=== PATIENT | female | born 1955 | race Caucasian/White ===

== ENCOUNTER 2018-06-12 16:39 | Emergency (ER) | payer OTHER ==
[~2018-06-12] VITALS: Ht 157.5 cm; Wt 73.9 kg
[2018-06-12] MEDS ORDERED: NOR10 PO (18:15)
[2018-06-12] MEDS ORDERED: METFORMIN500 M1 PO (18:16)
[2018-06-12] MEDS ORDERED: LOVASTATIN20 MG PO (18:17)
[2018-06-12] MEDS ORDERED: LOSARTAN POTASS1 TA8 PO (18:17)
[2018-06-12 18:32] LABS: BASOPHIL % 0.5 % (0-2); PLATELET COUNT 275 x10^3mcL (130-400); RED CELL DISTRIBUTION WIDTH 13.9 % (11.5-14.5)
[2018-06-12 18:39] LABS: CALCIUM 9.3 mg/dL (8.5-10.1); CARBON DIOXIDE 30.8 mmol/L (21-32); CHLORIDE SERUM 102 mmol/L (98-107); CREATININE SERUM 1.1 mg/dL (0.6-1.0); GFR1 53 mL/min; GLUCOSE SERUM 117 mg/dL (74-106); POTASSIUM SERUM 3.7 mmol/L (3.5-5.1); SODIUM SERUM 142 mmol/L (136-145)
[2018-06-12 18:41] LABS: microscopic required? YES; urine erythrocyte NEGATIVE (NEGATIVE)
[2018-06-12 18:43] LABS: ALBUMIN 3.7 g/dL (3.4-5.0); ALKALINE PHOSPHATASE 73 U/L (46-116); ALT/SGPT 19 U/L (14-59); AST/SGOT 16 U/L (15-37); BILIRUBIN TOTAL 0.19 mg/dL (0.20-1.00); CHOLESTEROL 184 mg/dL (<200); TOTAL PROTEIN, SERUM 7.9 g/dL (6.4-8.2)
[2018-06-12 20:17] VITALS: BP 114/79
== END 2018-06-12 20:17 | disposition home or self-care (01) ==
LOC: ED 16:39
PROVIDERS: Specialist
DX: R42 Dizziness and giddiness (principal); R53.83 Other fatigue; R51 Headache; I10 Essential (primary) hypertension; E11.9 Type 2 diabetes mellitus without complications; E78.00 Pure hypercholesterolemia, unspecified; Z88.8 Allergy status to other drugs, medicaments and biological substances
CPT/HCPCS: 83880; G0480; J7030; J8597; Q0092